=== PATIENT | male | born 1955 | race Caucasian/White ===

== ENCOUNTER → 2023-05-09 | Outpatient (CLI) | payer OTHER ==
[~2023-05-09] MED LIST: PROHANCE 279.3MG/ML 15ML VIAL ONE; PROHANCE 279.3MG/ML 5ML VIAL ONE
== END ==
LOC: M PLAIMG 15:15
PROVIDERS: ATTEND Urology
DX: N28.89 Other specified disorders of kidney and ureter (principal)
CPT/HCPCS: 74183; A9576